=== PATIENT | male | born 1975 | race African-American/Black ===

== ENCOUNTER 2019-06-09 19:22 | Emergency (ER) | payer MEDICAID ==
[~2019-06-09] VITALS: Ht 175.3 cm; Wt 79.0 kg
[2019-06-09] MEDS ORDERED: LIDOCAINE HCL/PF 1% 10 MG/ML 5ML VIAL IJ ONE (22:45)
[2019-06-09] MEDS ORDERED: BACITRACIN ZINC OINT UDPKT TOP ONE (22:45)
[2019-06-09] MEDS ORDERED: IBUPROFEN 600MG TABLET PO ONE (22:45)
[2019-06-09] MEDS ORDERED: TETANUS, DIPHTHERIA, PERTUSSIS VAC/PF 0.5ML (>7YR OLD) IM ONE (22:45)
[2019-06-09 23:30] VITALS: BP 136/78
== END 2019-06-10 00:03 | disposition home or self-care (01) ==
LOC: ER 20:15
DX: S61.012A Laceration without foreign body of left thumb without damage to nail, initial encounter (principal); F12.10 Cannabis abuse, uncomplicated; W45.8XXA Other foreign body or object entering through skin, initial encounter; Y93.89 Activity, other specified; Y92.89 Other specified places as the place of occurrence of the external cause; Y99.8 Other external cause status
CPT/HCPCS: 12002; 90471; 90715; 99283; J3490

== ENCOUNTER 2023-01-08 21:53 | Emergency (ER) | payer SELFPAY ==
[~2023-01-08] VITALS: Ht 175.3 cm; Wt 77.0 kg
[2023-01-08 22:02] VITALS: O2SAT 96
[2023-01-09] MEDS ORDERED: KETOROLAC 30MG/ML VIAL IM ONE
[2023-01-09 00:23] VITALS: BP 146/110
[2023-01-09] MEDS ORDERED: NAPR-1176 MT (01:01)
[2023-01-09 01:12] VITALS: PULSE 96; RESP 16; TEMP 98.6
== END 2023-01-09 01:12 | disposition home or self-care (01) ==
LOC: ER 21:53
DX: S70.01XA Contusion of right hip, initial encounter (principal); F12.10 Cannabis abuse, uncomplicated; W18.39XA Other fall on same level, initial encounter; Y93.89 Activity, other specified; Y92.89 Other specified places as the place of occurrence of the external cause; Y99.8 Other external cause status
CPT/HCPCS: 73502; 99283; 96372; J1885; Z7610